=== PATIENT | female | born 1990 | race Caucasian/White ===

== ENCOUNTER 2018-01-22 03:49 | Inpatient (IN) | payer MEDICAID ==
[~2018-01-22] VITALS: Ht 152.4 cm; Wt 66.0 kg
[2018-01-22] MEDS ORDERED: OXYTOCIN 30U/ 0.9% NaCL 500ML 500 ML IV ONE (04:11)
[2018-01-22] MEDS ORDERED: LACTATED RINGERS 1,000 ML IV SCH ×2 (04:11→04:28)
[2018-01-22] MEDS ORDERED: AMPICILLIN 2 GM in SODIUM CHLORIDE 0.9% 100 ML IVPB STA (04:11)
[2018-01-22] MEDS ORDERED: D5%-LACTATED RINGERS 1,000 ML IV SCH (04:11)
[2018-01-22] MEDS ORDERED: NEWBORN KIT ONE (04:25)
[2018-01-22 04:26] LABS: AMPHETAMINE SCREEN, URINE Negative (Negative); BARBITURATE SCREEN, URINE Negative (Negative); BENZODIAZEPINE SCREEN, URINE Negative (Negative); CANNABINOID SCREEN, URINE Positive (Negative); COCAINE SCREEN, URINE Negative (Negative); METHADONE SCREEN, URINE Negative (Negative); OPIATE SCREEN, URINE Negative (Negative)
[2018-01-22] MEDS ORDERED: MISOPROSTOL 200 MCG TABLET ONE (04:26)
[2018-01-22] MEDS ORDERED: OXYTOCIN 30U/ 0.9% NaCL 500ML 500 ML ONE (04:26)
[2018-01-22] MEDS ORDERED: FENTANYL/BUPIV./NS/PF 250 ML EPIDCONT SCH (04:28)
[2018-01-22] MEDS ORDERED: TERBUTALINE 1 MG/ML, 1ML IVPush PRN (04:30)
[2018-01-22] MEDS ORDERED: ONDANSETRON 2MG/ML, 2ML IVPush PRN (04:30)
[2018-01-22] MEDS ORDERED: EPHEDRINE 50 MG/ML, 1ML IVPush PRN (04:30)
[2018-01-22] MEDS ORDERED: PENICILLIN GK 5,000,000 UNITS in SODIUM CHLORIDE 0.9% 100 ML IVPB ONE (04:30)
[2018-01-22] MEDS ORDERED: FENTANYL PF 100 MCG/2ML IVPush PRN (04:30)
[2018-01-22] MEDS ORDERED: LACTATED RINGERS 1,000 ML IVBOLUS PRN (04:30)
[2018-01-22] MEDS ORDERED: FENTANYL PF 100 MCG/2ML IV PRN (04:30)
[2018-01-22] MEDS ORDERED: CALCIUM CARBONATE 500 MG TAB.CHEW PO PRN ×2 (04:30→14:30)
[2018-01-22 05:14] LABS: BASOPHILS # (AUTO) 0.05 x10^3/uL (0-0.1); BASOPHILS % (AUTO) 0 % (0-1); EOSINOPHILS # (AUTO) 0.02 x10^3/uL (0-0.4); EOSINOPHILS % (AUTO) 0 % (1-7); LYMPHOCYTES # (AUTO) 2.48 x10^3/uL (1-3.4); LYMPHOCYTES % (AUTO) 21 % (22-44); MD NO; MEAN CORPUSCULAR HEMOGLOBIN 24.4 pg (27.0-34.8); MEAN CORPUSCULAR HGB CONC 32.5 g/dL (32.4-35.8); MEAN CORPUSCULAR VOLUME 75.1 fL (80-100); MEAN PLATELET VOLUME 9.4 fL (7.4-10.4); MONOCYTES # (AUTO) 0.68 x10^3/uL (0.2-0.8); MONOCYTES % (AUTO) 6 % (2-9); NEUTROPHILS % (AUTO) 73 % (42-75); PLATELET COUNT 263 x10^3/uL (130-400); RED BLOOD COUNT 4.14 x10^6/uL (3.82-5.3); RED CELL DISTRIBUTION WIDTH 16.8 % (9.6-15.2)
[2018-01-22] MEDS ORDERED: ACETAMINOPHEN 325 MG TABLET ONE (05:16)
[2018-01-22 05:17] LABS: ALANINE AMINOTRANSFERASE 17 U/L (12-78); ALBUMIN 2.6 g/dL (3.4-5.0); ANION GAP 9 mmol/L (5-15); CALCIUM 8.6 mg/dL (8.5-10.1); CHLORIDE 110 mmol/L (98-107); CREATININE 0.66 mg/dL (0.55-1.02)
[2018-01-22 05:20] LABS: ALKALINE PHOSPHATASE 217 U/L (45-117); BILIRUBIN,TOTAL 0.1 mg/dL (0.2-1.0); TOTAL PROTEIN 7.1 g/dL (6.4-8.2)
[2018-01-22] MEDS ORDERED: BUPIVACAINE 0.25% ONE (05:37)
[2018-01-22] MEDS ORDERED: OXYTOCIN 30U/ 0.9% NaCL 500ML 500 ML IV PRN (07:04)
[2018-01-22] MEDS ORDERED: CALCIUM CARBONATE 500 MG TAB.CHEW ONE (08:18)
[2018-01-22] MEDS ORDERED: PENICILLIN GK 2,500,000 UNITS in DEXTROSE 5% 100 ML IVPB SCH (08:30)
[2018-01-22] MEDS ORDERED: ONDANSETRON 2MG/ML, 2ML ONE (09:48)
[2018-01-22] MEDS ORDERED: LACTATED RINGERS 1,000 ML INTUTE PRN (11:30)
[2018-01-22] MEDS ORDERED: TRANEXAMIC ACID 100 MG/ML, 10ML ONE (12:04)
[2018-01-22] MEDS ORDERED: IBUPROFEN 600 MG TABLET ONE (13:30)
[2018-01-22] MEDS ORDERED: MISOPROSTOL 200 MCG TABLET PR ONE (13:30)
[2018-01-22] MEDS ORDERED: IBUPROFEN 600 MG TABLET PO PRN (14:00)
[2018-01-22] MEDS ORDERED: IBUPROFEN 200 MG TABLET PO PRN (14:00)
[2018-01-22] MEDS ORDERED: OXYcodone/APAP 5/325MG TABLET ONE (14:02)
[2018-01-22] MEDS: OXYTOCIN 30U/ 0.9% NaCL 500ML 500 ML IV SCH (14:22)
[2018-01-22] MEDS: OXYcodone/APAP 5/325MG TABLET PO PRN ×3 (14:28→23:46)
[2018-01-22] MEDS ORDERED: OXYcodone/APAP 5/325MG TABLET PO PRN (14:30)
[2018-01-22] MEDS ORDERED: ACETAMINOPHEN 325 MG TABLET PO PRN ×2 (14:30)
[2018-01-22] MEDS ORDERED: ONDANSETRON 2MG/ML, 2ML IV PRN (14:30)
[2018-01-22 16:00] VITALS: BP 107/71
[2018-01-22] MEDS: IBUPROFEN 600 MG TABLET PO PRN (19:41)
[2018-01-22] MEDS: DOCUSATE 100 MG CAPSULE PO PRN (19:41)
[2018-01-22 20:00] VITALS: BP 104/68
[2018-01-22 20:58] LABS: BASOPHILS # (AUTO) 0.05 x10^3/uL (0-0.1); BASOPHILS % (AUTO) 0 % (0-1); EOSINOPHILS # (AUTO) 0.02 x10^3/uL (0-0.4); EOSINOPHILS % (AUTO) 0 % (1-7); LYMPHOCYTES # (AUTO) 2.22 x10^3/uL (1-3.4); LYMPHOCYTES % (AUTO) 15 % (22-44); MD NO; MEAN CORPUSCULAR HEMOGLOBIN 24.9 pg (27.0-34.8); MEAN CORPUSCULAR HGB CONC 32.4 g/dL (32.4-35.8); MEAN CORPUSCULAR VOLUME 76.7 fL (80-100); MEAN PLATELET VOLUME 9.1 fL (7.4-10.4); MONOCYTES # (AUTO) 0.85 x10^3/uL (0.2-0.8); MONOCYTES % (AUTO) 6 % (2-9); NEUTROPHILS # (AUTO) 12.23 x10^3/uL (1.8-6.8); NEUTROPHILS % (AUTO) 80 % (42-75); PLATELET COUNT 225 x10^3/uL (130-400); RED BLOOD COUNT 4.01 x10^6/uL (3.82-5.3); RED CELL DISTRIBUTION WIDTH 16.8 % (9.6-15.2)
[2018-01-22 21:00] VITALS: BP 125/77
[2018-01-22 23:55] VITALS: BP 109/67
[2018-01-23] MEDS: OXYTOCIN 30U/ 0.9% NaCL 500ML 500 ML IV SCH ×3 (00:22→17:12)
[2018-01-23] MEDS: IBUPROFEN 600 MG TABLET PO PRN ×2 (04:10→20:21)
[2018-01-23] MEDS: OXYcodone/APAP 5/325MG TABLET PO PRN ×4 (04:10→20:21)
[2018-01-23 04:15] VITALS: BP 104/66
[2018-01-23 08:10] VITALS: BP 109/67
[2018-01-23] MEDS: DOCUSATE 100 MG CAPSULE PO PRN ×2 (08:13→20:21)
[2018-01-23] MEDS: PRENATAL VIT/IRON/FA 1 EACH TABLET PO SCH (08:13)
[2018-01-23 13:00] VITALS: BP 104/60
[2018-01-23 16:00] VITALS: BP 110/62
[2018-01-23 19:30] VITALS: BP 150/78
[2018-01-23 21:45] VITALS: BP 129/84
[2018-01-24] MEDS: OXYcodone/APAP 5/325MG TABLET PO PRN ×3 (00:21→13:46)
[2018-01-24] MEDS: OXYTOCIN 30U/ 0.9% NaCL 500ML 500 ML IV SCH ×2 (06:22→16:22)
[2018-01-24] MEDS: IBUPROFEN 600 MG TABLET PO PRN ×3 (07:35→20:03)
[2018-01-24] MEDS: PRENATAL VIT/IRON/FA 1 EACH TABLET PO SCH (07:35)
[2018-01-24] MEDS: DOCUSATE 100 MG CAPSULE PO PRN ×2 (07:35→20:03)
[2018-01-24 08:00] VITALS: BP 118/63
[2018-01-24] MEDS ORDERED: DIPH,PERTUSS(ACELL),TET VAC/PF NC IM-VACC ONE (11:24)
[2018-01-24 20:05] VITALS: BP 123/71
== END 2018-01-24 21:00 | disposition home or self-care (01) | DRG 806 ==
LOC: LDOP 03:49 → LDIP 04:16 → 2NW 14:50
PROVIDERS: ADMIT Obstetrics & Gynecology; ATTEND Obstetrics & Gynecology
PROC: 10E0XZZ Delivery of Products of Conception, External Approach (ICD-10-PCS; principal; 2018-01-22)
PROC: 0HQ9XZZ Repair Perineum Skin, External Approach (ICD-10-PCS; 2018-01-22)
PROC: 3E0R3BZ Introduction of Anesthetic Agent into Spinal Canal, Percutaneous Approach (ICD-10-PCS; 2018-01-22)
PROC: 00HU33Z Insertion of Infusion Device into Spinal Canal, Percutaneous Approach (ICD-10-PCS; 2018-01-22)
DX: O77.0 Labor and delivery complicated by meconium in amniotic fluid (principal); O99.324 Drug use complicating childbirth; Z37.0 Single live birth; F12.90 Cannabis use, unspecified, uncomplicated; O70.0 First degree perineal laceration during delivery; Z3A.39 39 weeks gestation of pregnancy; Z87.891 Personal history of nicotine dependence
CPT/HCPCS: 36415; 87806; J7121; 76805; 80053; 80307; 82803; 85025; 86592; 86762; 86850; 86900; 87081; 87340; 88307; 89060; 90656; G0378; J2405; J2540; J3490; G0475; J2590; J3010; J7120; Q0114